=== PATIENT | male | born 1980 | race Caucasian/White ===

== ENCOUNTER 2021-06-09 20:19 | Emergency (ER) | payer BC ==
[~2021-06-09] VITALS: Ht 172.7 cm; Wt 88.5 kg
[2021-06-09 23:14] VITALS: BP 145/65
== END 2021-06-09 23:15 | disposition home or self-care (01) ==
LOC: M.ERS 20:19
DX: S01.81XA Laceration without foreign body of other part of head, initial encounter (principal); W50.0XXA Accidental hit or strike by another person, initial encounter; Y93.89 Activity, other specified; Y92.89 Other specified places as the place of occurrence of the external cause; Y99.9 Unspecified external cause status